=== PATIENT | male | born 2000 | race Caucasian/White ===

== ENCOUNTER 2024-11-25 08:50 | Outpatient (CLI) | payer BC, SELFPAY | END 2024-11-25 08:51 | disposition home or self-care (01) | PROVIDERS: PCP Family Medicine; Visit Provider Family Medicine | DX: Z11.3 Encounter for screening for infections with a predominantly sexual mode of transmission (principal); Z11.59 Encounter for screening for other viral diseases | CPT/HCPCS: 86592; 86593; 86703; 86706; 86803; 87340; 87491; 87591 ==